=== PATIENT | male | born 1940 | race Caucasian/White ===

== ENCOUNTER → 2018-07-28 | Day surgery (SDC) | payer MEDICARE ==
[2018-07-27 10:56] LABS: BASOPHILS # (AUTO) 0.1 (0.0-0.1); BASOPHILS % 0.5 % (0.0-1.0); EOSINOPHILS # (AUTO) 0.6 (0.0-0.4); EOSINOPHILS % 5.4 % (0.0-6.0); HEMATOCRIT 42.3 % (38.2-49.6); HEMOGLOBIN 14.5 g/dL (14.0-18.0); LYMPHOCYTES # (AUTO) 2.1 (1.0-3.2); LYMPHOCYTES % 18.7 % (18.0-39.1); MEAN CORPUSCULAR HEMOGLOBIN 31.3 pg (28-32); MEAN CORPUSCULAR HGB CONC 34.3 g/dL (31-35); MEAN CORPUSCULAR VOLUME 91.2 fL (81-99); MONOCYTES # (AUTO) 0.9 (0.2-0.8); MONOCYTES % 8.2 % (4.4-11.3); NEUTROPHILS # (AUTO) 7.6 (2.1-6.9); NEUTROPHILS % 66.8 % (38.7-80.0); PLATELET COUNT 252 x10e3/uL (140-360); RED BLOOD COUNT 4.64 x10e6/uL (4.3-5.7); RED CELL DISTRIBUTION WIDTH 12.2 % (11.7-14.4)
[2018-07-27 11:04] LABS: INR 1.02; PROTHROMBIN TIME 13.9 seconds (11.9-14.5)
[2018-07-27 11:05] LABS: PARTIAL THROMBOPLASTIN TIME 35.1 seconds (23.8-35.5)
[2018-07-27 11:12] LABS: ALBUMIN 4.4 g/dL (3.5-5.0); ALBUMIN/GLOBULIN RATIO 1.2 (0.8-2.0); ANION GAP 12.4 mmol/L (8-16); CALCIUM 11.1 mg/dL (8.4-10.2); CREATININE, SERUM 1.3 mg/dL (0.72-1.25); POTASSIUM 4.4 mmol/L (3.5-5.1)
[~2018-07-28] VITALS: Ht 180.3 cm; Wt 99.8 kg
[~2018-07-28] MED LIST: AMLODIPINE BESY10 MG PO; ASPIR 8181 MG; BENZOCAINE 20% SPR 60 ML CAN ONE; CALCIUM PO; CHOLECALCIFEROL PO; CO Q1060 MG PO; FENTANYL CITRATE/PF 100MCG/2 ML INJ ONE; FISH OIL 1,0001 EAC2 PO; FLUTICASONE PRO60 ML IH; HYDROXYZINE HCL25 MG PO; IBANDRONATE SO150 MG PO; LIDOCAINE HCL 2% LOCAL INJ 5 ML SDV VIAL INJ ONE; LOSARTAN POTAS100 MG PO; MAGNESIUM PEG; MAGNESIUM PO; METOPROLOL TART25 MG PO; MIDAZOLAM HCL 2 MG/2 ML VIAL ONE; MULTIVITAMINS1 EAC7 PO; OMEPRAZOLE40 MG PO; PROMETHAZINE HC25 M1 PO; PROPOFOL IV EMULSION 10 MG/ML 20 ML VIAL ONE; SAW PALMETTO 1160 MG PO; SELENIUM200 MC2; SODIUM CHLORIDE 0.9% 1000ML 1,000 ML ONE; VENTOLIN HFA18 GM IH; [UNRECOGNIZED DRUG - MIXTURE] PO; breo ellipta IH
--- OUTSIDE RECORDS SUMMARY | 2018-07-28 08:21 | XMS REPORT | Summary of Care ---
Author Author JAVIER ESTRADA M.D. Organization Unknown Address [facility] Phone Unavailable Care Team Providers Care Student Support Advisor Name Role Phone JAVIER ESTRADA M.D. 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 * Start : 05-Jan-2018 Active 21 Tablet Pack Allergies and Adverse Reactions Name Dates Details Allergy history not documented Status: Procedures Procedure Dates Details Procedures not documented Immunization Name Dates Details Immunizations not documented Social History Name Dates Details Unknown if ever smoked Vital Signs Date Test Result Details No Known Vitals to report Results Date Description Value Details Results not documented Plan of Care Name Dates Details Planned Observations Planned Goals not documented Interventions Provided Medication Changes* MethylPREDNISolone 4 MG Oral Tablet Therapy Pack - Start Plan* 1. Stop the topical decongestant. Will need to continue on the Flonase and the sinus rinse. Will need medrol dose pack. Instructions Name Dates Details Instructions not documented Encounters Appointment; JAVIER ESTRADA M.D. Encounter Diagnosis: Problem not documented On: 05-Jan-2018 7:45
[2018-07-28 09:53] VITALS: BP 129/72
[2018-07-28 10:36] VITALS: BP 92/55
[2018-07-28 10:51] VITALS: BP 108/61
[2018-07-28 11:06] VITALS: BP 106/77
[2018-07-28 11:21] VITALS: BP 110/71
--- NOTE | 2018-07-28 11:36 | NUR ---
[id number] Hamilton Pt back to baseline orientation ,meeting DC scores (0-Rass score,10 Junior scores) Ok to dc home and remain NPO for one additional hours Taylor Hansen completing DC plans and removing IV. ds/rn
== END | disposition home or self-care (01) ==
LOC: CATH LAB 08:19 → EDSTATUS 10:00
PROVIDERS: ATTEND Internal Medicine Cardiovascular Disease
DX: G45.3 Amaurosis fugax (principal); R55 Syncope and collapse; I35.1 Nonrheumatic aortic (valve) insufficiency; I70.0 Atherosclerosis of aorta; I10 Essential (primary) hypertension; J30.2 Other seasonal allergic rhinitis; J45.909 Unspecified asthma, uncomplicated; K21.9 Gastro-esophageal reflux disease without esophagitis; Z01.812 Encounter for preprocedural laboratory examination; Z79.82 Long term (current) use of aspirin; Z68.31 Body mass index [BMI] 31.0-31.9, adult
CPT/HCPCS: 36415; 80053; 85025; 85610; 85730; 93312; 93320; 93325; J2001; J2250; J2704; J7030